=== PATIENT | female | born 2005 | race Caucasian/White ===

== ENCOUNTER 2023-09-03 07:30 | Outpatient (CLI) | payer OTHER ==
--- NOTE | 2023-09-04 02:08 | XRAY Report ---
PROCEDURE: Foot 1-2V BL INDICATIONS: FOOT PAIN, UNSPECIFIED TECHNIQUE: 3 views of the foot were obtained. COMPARISON: None FINDINGS: Bones: No fractures or dislocations. No suspicious bony lesions. Soft tissues: Unremarkable. No radiopaque foreign body. IMPRESSION: Normal foot radiographs Reviewed by: Arnol Diaan MD on 09/04/2023 1:07 AM AKEUNICE Approved by: Arnol Diana MD on 09/04/2023 1:07 AM AKDT Station ID: [id number]
== END 2023-09-03 07:45 | disposition home or self-care (01) ==
LOC: DI.N 07:30
PROVIDERS: ATTEND Physician Assistant Medical
DX: M79.671 Pain in right foot (principal); M79.672 Pain in left foot